=== PATIENT | male | born 1950 | race Caucasian/White ===

== ENCOUNTER 2021-04-12 07:09 | Outpatient (CLI) | payer OTHER | END 2021-04-12 07:30 | disposition home or self-care (01) | LOC: TOM 07:09 | PROVIDERS: ATTEND Internal Medicine Gastroenterology | DX: K63.5 Polyp of colon (principal) ==

== ENCOUNTER 2022-06-23 09:34 | Outpatient (CLI) | payer OTHER | END 2022-06-23 09:39 | disposition home or self-care (01) | LOC: RX STUDY 09:34 | PROVIDERS: ATTEND Internal Medicine Gastroenterology | DX: R10.9 Unspecified abdominal pain (principal) ==

== ENCOUNTER 2022-09-09 07:38 | Outpatient (CLI) | payer OTHER | END 2022-09-09 07:39 | disposition home or self-care (01) | LOC: NUCLEAR 07:38 | PROVIDERS: ATTEND Internal Medicine Gastroenterology | DX: K81.0 Acute cholecystitis (principal) | CPT/HCPCS: 78264; A9541 ==